=== PATIENT | male | born 1985 | race Caucasian/White ===

== ENCOUNTER 2017-11-26 16:03 | Outpatient (CLI) | payer OTHER ==
--- NOTE | 2017-11-26 17:55 | RAD ---
THREE VIEWS LUMBAR SPINE: DTAE: 11/26/17. HISTORY: Back pain, joint pain. FINDINGS: There is mild disk space narrowing at the lumbosacral junction and mild anterolisthesis of L5 on S1 m easuring in the 6 mm range. No obvious pars defects are seen at L5, but evaluation is limited withou t oblique views. Lumbar pedicles are intact. No acute osseous abnormality is seen. IMPRESSION: Degenerative disk disease of the lumbosacral junction with mild anterolisthesis. Recommend oblique i maging and/or CT to assess for underlying pars defects. Alternatively, evaluation of the lumbar spin e via MRI may be beneficial. POS: RAY
[2017-11-27 12:30] LABS: ANA Symphony (Qualitative) Negative (Negative); CCP IgG Antibody 0.9 EliAU/mL (<7 Negative); EliA RAS New Method **** NEW METHOD ****; Rheumatoid Factor IgA Antibody 1.9 IU/mL (<14 Negative); Rheumatoid Factor IgM Antibody 1.9 IU/mL (<3.5 Negative); dsDNA IgG Antibody 1.1 IU/mL (<10 Negative)
== END 2017-11-26 16:04 | disposition home or self-care (01) ==
LOC: SCSRAD 16:03
PROVIDERS: ATTEND Family Medicine
DX: M54.5 Low back pain (principal); M25.50 Pain in unspecified joint; M51.87 Other intervertebral disc disorders, lumbosacral region; M43.17 Spondylolisthesis, lumbosacral region
CPT/HCPCS: 36415; 72100; 83520; 86038; 86200; 86225; 86812